=== PATIENT | female | born 1985 ===

== ENCOUNTER 2024-06-08 05:08 | Day surgery (SDC) | payer OTHER ==
[~2024-06-08] VITALS: Ht 170.2 cm; Wt 89.8 kg
[2024-06-08] MEDS ORDERED: ENOXAPARIN SODIUM 40 MG/0.4 ML SYRINGE SUBCUTANEO ONE (06:15)
[2024-06-08] MEDS ORDERED: CEFAZOLIN SODIUM 1,000 MG VIAL ONE (06:15)
[2024-06-08] MEDS ORDERED: EPINEPHRINE HCL/PF 1 MG/ML AMPUL ONE (08:02)
[2024-06-08] MEDS ORDERED: LIDOCAINE HCL 1%/EPINEPHRINE 20ML VIAL IJ ONE ×2 (08:08→08:10)
[2024-06-08] MEDS ORDERED: CEFAZOLIN SODIUM 1,000 MG VIAL IV SCH (09:45)
[2024-06-08] MEDS ORDERED: LIDOCAINE HCL 1%/EPINEPHRINE 20ML VIAL IJ SCH (09:45)
[2024-06-08] MEDS ORDERED: EPINEPHRINE HCL/PF 1 MG/ML AMPUL IR SCH (09:45)
[2024-06-08] MEDS ORDERED: SUGAMMADEX SODIUM 200 MG/2 ML VIAL IV ONE (13:51)
[2024-06-08] MEDS ORDERED: ONDANSETRON HCL 2 MG/ML VIAL ONE (16:22)
== END 2024-06-08 18:02 | disposition home or self-care (01) ==
LOC: CIR.AMB 05:08
PROVIDERS: ATTEND Specialist
DX: E65 Localized adiposity (principal); N62 Hypertrophy of breast; N64.81 Ptosis of breast